=== PATIENT | female | born 1975 | race Caucasian/White ===

== ENCOUNTER 2021-04-07 17:37 | Emergency (ER) | payer OTHER ==
[~2021-04-07] VITALS: Ht 157.5 cm; Wt 87.5 kg
[2021-04-07 17:52] VITALS: BP 161/104
[2021-04-07] MEDS ORDERED: BUPIVACAINE-MPF 0.25% 30 ML VIAL INJ ONE (21:30)
[2021-04-07] MEDS ORDERED: KETOROLAC 30 MG/ML VIAL IM ONE (21:30)
--- NOTE | 2021-04-07 22:40 | NUR ---
Patient discharged with v/s stable. Written and verbal after care instructions given and explained. Patient verbalized understanding. Ambulatory with steady gait. All questions addressed prior to discharge. Advised to follow up with PMD.
[2021-04-07] MEDS ORDERED: KETOROLAC 30 MG/ML VIAL ONE (22:46)
== END 2021-04-07 22:40 | disposition home or self-care (01) ==
LOC: MED 17:37
DX: K08.89 Other specified disorders of teeth and supporting structures (principal)
CPT/HCPCS: 96372; 99283; J1885; J3490